=== PATIENT | male | born 1990 | race African-American/Black ===

== ENCOUNTER 2018-07-08 01:43 | Inpatient (IN) | payer MEDICAID, OTHER ==
[~2018-07-08] VITALS: Ht 157.5 cm; Wt 65.3 kg
[2018-07-08] MEDS ORDERED: MORPHINE SULFATE 4 MG/ML CPJ (NOT FOR IM USE) IV STA (02:41)
[2018-07-08] MEDS ORDERED: KETOROLAC 30MG/ML VIAL IV STA (02:41)
[2018-07-08] MEDS ORDERED: SODIUM CHLORIDE 0.9% 1,000 ML IV ONE (02:41)
[2018-07-08] MEDS ORDERED: ONDANSETRON HCL 4MG/2ML INJ IV STA (02:41)
[2018-07-08 03:04] LABS: BASOPHILS % 0.7 % (0.0-2.0); EOSINOPHILS % 1.3 % (0.0-5.0); HEMATOCRIT. 27.6 % (42.0-52.0); HEMOGLOBIN. 9.2 g/dL (14.0-18.0); LYMPHOCYTES % 8.5 % (20.0-50.0); MEAN CORPUSCULAR HEMOGLOBIN 30.9 pg (28.0-32.0); MEAN CORPUSCULAR VOLUME 92.4 fL (80.0-94.0); MEAN PLATELET VOLUME 7.6 fl (7.4-10.4); MONOCYTES % 6.4 % (2.0-8.0); NEUTROPHILS % 83.1 % (40.0-76.0); PLATELET 778 x1000/uL (130-400); RED BLOOD CELL COUNT 2.99 mill/uL (4.7-6.1); RED CELL DISTRIBUTION WIDTH 16.2 % (11.6-14.6)
[2018-07-08 03:11] LABS: CHLORIDE 106 mEq/L (98-107)
[2018-07-08 03:15] LABS: ETHANOL BLOOD < 10 mg/dL
[2018-07-08] MEDS ORDERED: MORPHINE SULFATE 10 MG/ML CPJ IM ONE (06:45)
[2018-07-08] MEDS ORDERED: MORPHINE SULFATE 4 MG/ML CPJ (NOT FOR IM USE) IV PRN ×2 (07:30→11:30)
[2018-07-08] MEDS ORDERED: ONDANSETRON HCL 4MG/2ML INJ IV PRN (07:30)
[2018-07-08 07:57] LABS: TOTAL IRON BINDING CAPACITY 288 ug/dL (250-450)
[2018-07-08 08:02] LABS: CLARITY URINE CLEAR (CLEAR); COLOR URINE YELLOW (YELLOW); KETONES URINE NEGATIVE (NEGATIVE); LEUKOCYTE ESTERASE URINE NEGATIVE (NEGATIVE); NITRITE URINE NEGATIVE (NEGATIVE); OCCULT BLOOD URINE NEGATIVE (NEGATIVE); PROTEIN URINE NEGATIVE (NEGATIVE); SPECIFIC GRAVITY URINE 1.025 (1.005-1.030); UROBILINOGEN URINE 0.2 E.U./dL (0.2-1.0)
[2018-07-08 08:14] LABS: *AMPHETAMINES SCREEN URINE NEGATIVE (NEGATIVE)
[2018-07-08 08:15] LABS: *BARBITURATES SCREEN URINE NEGATIVE (NEGATIVE); *BENZODIAZEPINES SCREEN URINE PRESUMTIVE POSITIVE (NEGATIVE); *COCAINE SCREEN URINE NEGATIVE (NEGATIVE); METHADONE URINE SCREEN NEGATIVE (NEGATIVE); OPIATES URINE SCREEN PRESUMTIVE POSITIVE (NEGATIVE)
[2018-07-08 08:16] LABS: CANNABINOID URINE SCREEN PRESUMTIVE POSITIVE (NEGATIVE); PHENCYCLIDINE URINE SCREEN NEGATIVE (NEGATIVE)
[2018-07-08 10:00] VITALS: BP 124/87
[2018-07-08] MEDS ORDERED: ACETAMINOPHEN 325MG TABLET PO PRN (11:00)
[2018-07-08 12:00] VITALS: BP 124/70
[2018-07-08] MEDS: DOCUSATE SODIUM 250MG CAPSULE PO SCH (12:10)
[2018-07-08] MEDS: NICOTINE 14MG PATCH TD SCH (12:10)
[2018-07-08] MEDS: HYDROMORPHONE HCL/PF 2MG/ML CPJ IV PRN ×4 (12:12→21:15)
[2018-07-08] MEDS: FERROUS SULFATE 325MG TABLET PO SCH ×2 (12:17→18:29)
[2018-07-08] MEDS: CHLORDIAZEPOXIDE 25MG CAPSULE PO SCH ×2 (13:59→21:59)
[2018-07-08 16:00] VITALS: BP 138/82
[2018-07-08 20:00] VITALS: BP 117/66
[2018-07-08] MEDS: HYDROCODONE/ACETAMINOPHEN 5/325MG TABLET PO PRN (22:02)
[2018-07-09] MEDS: HYDROMORPHONE HCL/PF 2MG/ML CPJ IV PRN ×5 (00:16→12:43)
[2018-07-09 00:27] VITALS: BP 112/80
[2018-07-09] MEDS: HYDROCODONE/ACETAMINOPHEN 5/325MG TABLET PO PRN (01:57)
[2018-07-09 04:33] VITALS: BP 130/70
[2018-07-09] MEDS: CHLORDIAZEPOXIDE 25MG CAPSULE PO SCH ×2 (06:04→13:43)
[2018-07-09 08:00] VITALS: BP 127/77
[2018-07-09] MEDS ORDERED: MULTIVITAMINS,THER W-MINERALS TABLET PO SCH (09:00)
[2018-07-09] MEDS ORDERED: THIAMINE HCL 100MG TABLET PO SCH (09:00)
[2018-07-09] MEDS ORDERED: FOLIC ACID 1MG TABLET PO SCH (09:00)
[2018-07-09] MEDS: DOCUSATE SODIUM 250MG CAPSULE PO SCH (09:05)
[2018-07-09] MEDS: FERROUS SULFATE 325MG TABLET PO SCH ×2 (09:06→12:50)
[2018-07-09] MEDS: NICOTINE 14MG PATCH TD SCH (09:29)
[2018-07-09] MEDS ORDERED: HYDROCODONE/ACETAMINOPHEN 10/325MG TABLET PO PRN (10:15)
[2018-07-09 10:23] LABS: BASOPHILS % 1.4 % (0.0-2.0); EOSINOPHILS % 2.7 % (0.0-5.0); HEMATOCRIT. 30.6 % (42.0-52.0); HEMOGLOBIN. 10.1 g/dL (14.0-18.0); LYMPHOCYTES % 16.4 % (20.0-50.0); MEAN CORPUSCULAR HEMOGLOBIN 30.1 pg (28.0-32.0); MEAN CORPUSCULAR VOLUME 91.7 fL (80.0-94.0); MEAN PLATELET VOLUME 8.2 fl (7.4-10.4); MONOCYTES % 5.9 % (2.0-8.0); NEUTROPHILS % 73.6 % (40.0-76.0); PLATELET 840 x1000/uL (130-400); RED BLOOD CELL COUNT 3.34 mill/uL (4.7-6.1); RED CELL DISTRIBUTION WIDTH 15.8 % (11.6-14.6)
[2018-07-09 11:53] LABS: CHLORIDE 105 mEq/L (98-107)
[2018-07-09 12:00] VITALS: BP 127/87
[2018-07-09] MEDS ORDERED: POTASSIUM CHLORIDE 20MEQ TABLET SR PO NR (15:15)
[2018-07-09 16:00] VITALS: BP_SYST 115; BP_SYST 119; BP_DIAS 67; BP_DIAS 68
== END 2018-07-09 16:10 | disposition left against medical advice (07) | DRG 341 ==
LOC: ER 01:43 → 6EST 04:20 → EDBEDREQ 04:23 → EDBEDREQTM 04:23 → ENRESERV 08:38
PROVIDERS: ADMIT Internal Medicine; ATTEND Internal Medicine
DX: S32.591A Other specified fracture of right pubis, initial encounter for closed fracture (principal); D64.9 Anemia, unspecified; X58.XXXA Exposure to other specified factors, initial encounter; E87.6 Hypokalemia; E86.0 Dehydration; W19.XXXA Unspecified fall, initial encounter; Z53.21 Procedure and treatment not carried out due to patient leaving prior to being seen by health care provider; F10.129 Alcohol abuse with intoxication, unspecified; F12.90 Cannabis use, unspecified, uncomplicated; F17.200 Nicotine dependence, unspecified, uncomplicated; R26.2 Difficulty in walking, not elsewhere classified; Z71.6 Tobacco abuse counseling; Z71.41 Alcohol abuse counseling and surveillance of alcoholic; Y93.89 Activity, other specified; Y92.89 Other specified places as the place of occurrence of the external cause; Y99.8 Other external cause status
CPT/HCPCS: 36415; 72170; 72192; 73060; 73090; 80053; 80305; 81003; 82728; 83540; 83550; 85025; 92610; 93970; 96361; 96372; 96374; 96375; 97116; 97162; 99285; G0482; J1170; J1885; J2270; J2405; J7030

== ENCOUNTER 2018-07-22 17:57 | Emergency (ER) | payer MEDICAID ==
[~2018-07-22] VITALS: Ht 157.5 cm; Wt 64.0 kg
[2018-07-22] MEDS ORDERED: KETOROLAC 60MG/2ML VIAL IM ONE (21:30)
[2018-07-22] MEDS ORDERED: HYDROCODONE/ACETAMINOPHEN 5/325MG TABLET PO ONE (21:30)
[2018-07-22 21:41] VITALS: BP 138/70
== END 2018-07-22 22:55 | disposition home or self-care (01) ==
LOC: ER 17:57
DX: G89.29 Other chronic pain (principal); M79.602 Pain in left arm; F12.10 Cannabis abuse, uncomplicated; F17.200 Nicotine dependence, unspecified, uncomplicated; Z98.890 Other specified postprocedural states
CPT/HCPCS: 96372; 99283; J1885

== ENCOUNTER 2021-05-23 04:52 | Emergency (ER) | payer MEDICAID ==
[~2021-05-23] VITALS: Ht 165.1 cm; Wt 65.0 kg
[2021-05-23 05:15] VITALS: BP 132/60
[2021-05-23] MEDS ORDERED: CEFTRIAXONE SODIUM 1 G/VIAL IM STA (05:23)
[2021-05-23] MEDS ORDERED: HYDROCODONE/ACETAMINOPHEN 5/325MG TABLET PO STA (05:23)
[2021-05-23] MEDS ORDERED: LIDOCAINE HCL 1% 20ML VIAL (Pyxis) INJ INFIL ONE (05:30)
[2021-05-23] MEDS ORDERED: SULF1TAB48 MT (06:40)
[2021-05-23] MEDS ORDERED: T3 PO (06:40)
[2021-05-23] MEDS ORDERED: IBUP-2029 PO (06:40)
[2021-05-23] MEDS ORDERED: AMOX-424 PO (06:40)
== END 2021-05-23 07:11 | disposition home or self-care (01) ==
LOC: ER 04:52
DX: K04.7 Periapical abscess without sinus (principal); K02.9 Dental caries, unspecified; J45.909 Unspecified asthma, uncomplicated; F12.10 Cannabis abuse, uncomplicated
CPT/HCPCS: 96372; 99283; J0696; J3490